=== PATIENT | male | born 1960 | race Caucasian/White ===

== ENCOUNTER 2025-02-08 09:28 | Day surgery (SDC) | payer MEDICARE, OTHER ==
[~2025-02-08] VITALS: Ht 177.8 cm; Wt 100.0 kg
[~2025-02-08 09:28] MED LIST: ATOR80; ATOR80 PO; Aspir 8181 MG; Aspir 8181 MG PO; CLOP75 PO; DULO30 PO; FAMO20 PO; FERSU300 PO; FLUC200 PO; HYDACE10B PO; Hair, Skin & N1 EACH PO; JARDIANCE25 MG PO; LISI5 PO; METF500 PO; MIRALAX17 GM PO; MULVITA PO; MUPIROCIN1 G1 TOP; NARCAN4 M1; NITR.4SL SL; OMEP20ER PO; QVAR REDIHALE10.6 G3 IH; SILVADENE20 G8 TOP; TAMS.4ER PO; TOPROL XL25 MG PO; TORSE20 PO; ZESTRIL40 M1 PO
[2025-02-08 09:56] VITALS: BP 109/81
[2025-02-08] MEDS ORDERED: NS 250 ML IV ONE (10:36)
[2025-02-08] MEDS ORDERED: NS 1,000 ML IV ONE (10:37)
[2025-02-08] MEDS ORDERED: Heparin Sodium 1000 Units/ML 10ML MDV ONE (10:37)
[2025-02-08] MEDS ORDERED: NS 100 ML IV ONE (10:37)
[2025-02-08] MEDS ORDERED: Nitroglycerin 2 MG/20 ML BTL ONE (10:37)
[2025-02-08] MEDS ORDERED: Lactated Ringer's 1,000 ML IV ONE (10:57)
--- NOTE | 2025-02-08 11:06 | NUR ---
DR SINGH TO ROOM DISCUSSING PLAN OF CARE. PT DENIES QUESTIONS OR CONCERNS. VSS. TRENT. PT AWAITING ANESTHESIOLOGIST FOR ANESTHESIA PROCEDURE.
--- NOTE | 2025-02-08 13:25 | NUR ---
ANESTHESIOLOGIST TO ROOM DISCUSSING PLAN OF CARE. PT RESTING COMFORTABLY. VSS. NADN. S/O AT BEDSIDE. CALL LIGHT WIHTIN REACH.
[2025-02-08] MEDS ORDERED: Sugammadex Sodium 200 MG/2ML SDV (100 MG/ML) ONE (14:33)
[2025-02-08] MEDS ORDERED: Verapamil HCL 2.5 MG/ML 2ML Injection ONE (14:42)
[2025-02-08] MEDS ORDERED: FentaNYL Citrate 50 MCG/ML 2 ML Injection ONE ×2 (15:24→15:32)
[2025-02-08 15:47] VITALS: BP 124/86
--- NOTE | 2025-02-08 15:47 | NUR ---
PT BACK TO RECOVERY ROOM FROM PROCEDURE WITH ANESTHESIA AT BEDSIDE. PT BREATHING ON OWN ON 4L VIA MASK. PT DROWYS, FORGETFUL, ATTEMPS TO RAISE HEAD AND LEGS. PT CONSTANTLY REMINDED TO KEEP HEAD DOWN. RESTRAINTS TO ARMS B/L AND OVER LEGS. PT MOUTH SUCTIONED. PT REMINDED PROCEDURE IS OVER AND HE IS IN THE HOSPTIAL. PT STATES "OKAY" THEN GOES BACK TO SLEEP. ANGIOSEAL TO R GROIN, SOFT, NON TENDER. DRESSING TO L PT IS CLEAN DRY INTACT, NO BLEEDING. NO FAMILY IN WAITING ROOM.
[2025-02-08 16:00] VITALS: BP 104/72
[2025-02-08 16:15] VITALS: BP 119/85
--- NOTE | 2025-02-08 16:29 | NUR ---
PT MORE AWAKE AND FOLLOWING COMMANDS, PT SITTING UP AT 30 DEGRESS. SOFT MEDICAL RESTRAINS REMOVED. R GROIN SITE IS SOFT NON TENDER, AND L PT IS C/D/I.
[2025-02-08 16:30] VITALS: BP 115/79
--- NOTE | 2025-02-08 16:37 | NUR ---
S/O CONTATCTED AND WILL BE BACK FOR D/C. PT SITTING UP EATING, GIVEN COFFEE.
--- NOTE | 2025-02-08 17:06 | NUR ---
PT VERBALIZE D/C INSTRUCTIONS. PT GETTING DRESSED.
[2025-02-08] MEDS ORDERED: Propofol 10mg/ml 20 ml Vial (Procedural) IV ONE (20:01)
[2025-02-08] MEDS ORDERED: Midazolam HCl 1MG / ML 2ML Vial IM ONE (20:01)
[2025-02-08] MEDS ORDERED: Glycopyrrolate 0.2 MG/ML 5ML VIAL IM ONE (20:01)
[2025-02-08] MEDS ORDERED: Lidocaine HCl 2% 20 MG/ML 5ML SYR IV ONE (20:01)
== END 2025-02-08 17:30 | disposition home or self-care (01) ==
LOC: MHTC 09:28
DX: E11.51 Type 2 diabetes mellitus with diabetic peripheral angiopathy without gangrene (principal); I70.222 Atherosclerosis of native arteries of extremities with rest pain, left leg; J44.9 Chronic obstructive pulmonary disease, unspecified; I11.0 Hypertensive heart disease with heart failure; I50.9 Heart failure, unspecified; E11.621 Type 2 diabetes mellitus with foot ulcer; I25.2 Old myocardial infarction; E11.40 Type 2 diabetes mellitus with diabetic neuropathy, unspecified; Z79.82 Long term (current) use of aspirin; Z79.84 Long term (current) use of oral hypoglycemic drugs; Z79.899 Other long term (current) drug therapy
CPT/HCPCS: 36140; 36200; 75625; 75716; 75774; 76937; C1725; C1760; C1769; C1887; C1894; C2623; C9764; J1644; J2003; J2250; J2704; J3010; J7030; J7050; J7120; Q9967